=== PATIENT | male | born 1980 | race Caucasian/White ===

== ENCOUNTER 2020-07-04 13:42 | Outpatient (CLI) | payer MEDICARE | END 2020-07-04 13:43 | disposition home or self-care (01) | LOC: CSHMRI 13:42 | PROVIDERS: ATTEND Orthopaedic Surgery | DX: S46.312A Strain of muscle, fascia and tendon of triceps, left arm, initial encounter (principal) ==

== ENCOUNTER 2021-04-17 08:56 | Outpatient (CLI) | payer MEDICARE | END 2021-04-17 08:57 | disposition home or self-care (01) | LOC: CSHCT 08:56 | PROVIDERS: ATTEND Nurse Practitioner Family | DX: R22.2 Localized swelling, mass and lump, trunk (principal); N18.9 Chronic kidney disease, unspecified; N25.0 Renal osteodystrophy; M85.88 Other specified disorders of bone density and structure, other site; M47.816 Spondylosis without myelopathy or radiculopathy, lumbar region; I70.90 Unspecified atherosclerosis | CPT/HCPCS: 71260; 72129; 72132; 74177 ==